=== PATIENT | female | born 1990 | race Caucasian/White ===

== ENCOUNTER 2019-10-27 11:17 | Outpatient (CLI) | payer OTHER ==
--- NOTE | 2019-10-27 12:23 | ULT ---
RIGHT BREAST ULTRASOUND: Date: 10/27/2019 HISTORY: 29-year-old female with lump in right breast at 12 o'clock position. FINDINGS: Sonographic evaluation of the region of palpable concern at the 12 o'clock position of the right [address] demonstrates no abnormality. IMPRESSION: BI-RADS Category 2 - Benign findings. Return to age-appropriate screening based on risk factors.
== END 2019-10-27 11:18 | disposition home or self-care (01) ==
LOC: BICULT 11:17
PROVIDERS: ATTEND Obstetrics & Gynecology
DX: N63.11 Unspecified lump in the right breast, upper outer quadrant (principal)